=== PATIENT | female | born 2000 | race Two or more races ===

== ENCOUNTER → 2024-05-29 | Outpatient (REF) | payer OTHER ==
[~2024-05-29] MED LIST: MULTTAB20 PO; SUMA25TA3 PO
== END ==
LOC: M PLALAB 15:24
PROVIDERS: ATTEND Advanced Practice Midwife
DX: Z34.01 Encounter for supervision of normal first pregnancy, first trimester (principal)

== ENCOUNTER → 2024-05-29 | Outpatient (CLI) | payer OTHER ==
[2024-05-29 18:35] LABS: HEMATOCRIT 37.4 % (36.0-47.0); HEMOGLOBIN 12.9 g/dl (12.0-15.5); MEAN CORPUSCULAR HEMOGLOBIN 30.9 pg (27.0-33.0); MEAN CORPUSCULAR HGB CONC 34.5 g/dl (32.0-36.5); MEAN CORPUSCULAR VOLUME 89.7 fl (80.0-96.0); PLATELET COUNT, AUTOMATED 216 10^3/uL (150-450); RED BLOOD COUNT 4.17 10^6/uL (4.00-5.40); WHITE BLOOD COUNT 6.4 10^3/uL (4.0-10.0)
[2024-05-29 19:26] LABS: GC DNA AMPLIFICATION NEGATIVE (NEGATIVE)
[2024-05-29 19:40] LABS: HIV 1&2 SCREEN NEGATIVE (NEGATIVE)
[2024-05-29 19:49] LABS: HEPATITIS C VIRUS ABY INDEX 0.31 INDEX (<0.8)
== END ==
LOC: M PLALAB 15:42
PROVIDERS: ATTEND Advanced Practice Midwife
DX: Z34.01 Encounter for supervision of normal first pregnancy, first trimester (principal)

== ENCOUNTER → 2024-07-11 | Outpatient (CLI) | payer OTHER | LOC: M LAB 16:38 | PROVIDERS: ATTEND Obstetrics & Gynecology | DX: Z53.9 Procedure and treatment not carried out, unspecified reason (principal) ==

== ENCOUNTER → 2024-07-27 | Outpatient (CLI) | payer OTHER | LOC: M WHC 08:12 | PROVIDERS: ATTEND Obstetrics & Gynecology | DX: Z34.92 Encounter for supervision of normal pregnancy, unspecified, second trimester (principal) ==

== ENCOUNTER → 2024-08-29 | Outpatient (CLI) | payer OTHER | LOC: M RAD 11:54 | PROVIDERS: ATTEND Obstetrics & Gynecology | DX: Z34.92 Encounter for supervision of normal pregnancy, unspecified, second trimester (principal); Z3A.25 25 weeks gestation of pregnancy ==

== ENCOUNTER → 2024-08-31 | Outpatient (REF) | payer OTHER | LOC: M PLALAB 08:18 | PROVIDERS: ATTEND Advanced Practice Midwife | DX: Z34.02 Encounter for supervision of normal first pregnancy, second trimester (principal); Z53.9 Procedure and treatment not carried out, unspecified reason ==

== ENCOUNTER → 2024-11-16 | Outpatient (REF) | payer OTHER ==
[~2024-11-16] MED LIST changes: +OMEG10002 PO; +TUMS500C PO; +UNIS25TA3 PO
== END ==
LOC: M PLALAB 15:44
PROVIDERS: ATTEND Nurse Practitioner Family
DX: Z34.03 Encounter for supervision of normal first pregnancy, third trimester (principal); Z3A.36 36 weeks gestation of pregnancy; Z88.1 Allergy status to other antibiotic agents

== ENCOUNTER 2024-11-23 03:02 | Outpatient (CLI) | payer OTHER ==
[~2024-11-23] VITALS: Ht 162.6 cm; Wt 83.8 kg
[~2024-11-23 03:02] MED LIST changes: -TUMS500C PO
[2024-11-23] MEDS ORDERED: TUMS500C PO (03:19)
[2024-11-23 03:21] VITALS: BP 122/74
[2024-11-23] MEDS ORDERED: HOME MED LIST COMPLETE! XX SCH (03:25)
== END 2024-11-23 04:55 | disposition home or self-care (01) ==
LOC: M LDO 03:02
PROVIDERS: ATTEND Obstetrics & Gynecology
DX: O47.03 False labor before 37 completed weeks of gestation, third trimester (principal); O99.820 Streptococcus B carrier state complicating pregnancy; Z3A.37 37 weeks gestation of pregnancy; Z88.1 Allergy status to other antibiotic agents
CPT/HCPCS: 59025; G0463